=== PATIENT | female | born 1970 | race African-American/Black ===

== ENCOUNTER 2018-05-04 18:15 | Emergency (ER) | payer MEDICAID ==
[~2018-05-04] VITALS: Ht 165.1 cm; Wt 79.0 kg
[2018-05-04] MEDS ORDERED: IRON (18:34)
[2018-05-04] MEDS ORDERED: ACETAMINOPHEN 325MG TABLET ONE (18:39)
[2018-05-04] MEDS ORDERED: KETOROLAC 30MG/ML VIAL IV STA (23:10)
[2018-05-04] MEDS ORDERED: ONDANSETRON HCL 4MG/2ML VIAL IV STA (23:10)
[2018-05-04] MEDS ORDERED: SODIUM CHLORIDE 0.9% 1000ML BAG (SEPSIS BOLUS) IV ONE (23:15)
[2018-05-05 00:22] LABS: CLARITY URINE CLEAR (CLEAR); COLOR URINE YELLOW (YELLOW); KETONES URINE TRACE (NEGATIVE); LEUKOCYTE ESTERASE URINE NEGATIVE (NEGATIVE); NITRITE URINE NEGATIVE (NEGATIVE); OCCULT BLOOD URINE NEGATIVE (NEGATIVE); PROTEIN URINE NEGATIVE (NEGATIVE); SPECIFIC GRAVITY URINE 1.029 (1.005-1.030); UROBILINOGEN URINE 0.2 E.U./dL (0.2-1.0)
[2018-05-05 00:36] LABS: HEMATOCRIT. 25.2 % (36.0-48.0); HEMOGLOBIN. 7.9 g/dL (12.0-16.0); MEAN CORPUSCULAR VOLUME 76.3 fL (81.0-99.0); MEAN PLATELET VOLUME 8.3 fl (7.4-10.4); PLATELET 435 x1000/uL (130-400); RED CELL DISTRIBUTION WIDTH 20.3 % (11.6-14.6)
[2018-05-05 01:06] LABS: CHLORIDE 102 mEq/L (98-107)
[2018-05-05] MEDS ORDERED: ACETAMINOPHEN 500MG TABLET PO ONE (01:15)
[2018-05-05 02:41] LABS: PLATELET ESTIMATE SLIGHTLY INCREASED
[2018-05-05 03:29] VITALS: BP 106/70
== END 2018-05-05 03:32 | disposition home or self-care (01) ==
LOC: ER 19:44
DX: J06.9 Acute upper respiratory infection, unspecified (principal); R50.9 Fever, unspecified; X30.XXXA Exposure to excessive natural heat, initial encounter; Y93.89 Activity, other specified; Y92.9 Unspecified place or not applicable
CPT/HCPCS: 36415; 71045; 80053; 81003; 81025; 83605; 85025; 87040; 87086; 93005; 96374; 96375; 99285; J1885; J2405; J7030; J7040; Z7610